=== PATIENT | female | born 1945 | race Caucasian/White ===

== ENCOUNTER → 2016-10-09 | Outpatient (CLI) | payer OTHER | END | disposition home or self-care (01) | LOC: C.LABSPEC 13:00 | PROVIDERS: ATTEND Internal Medicine Hematology & Oncology | DX: D69.6 Thrombocytopenia, unspecified (principal) ==

== ENCOUNTER → 2017-03-12 | Outpatient (CLI) | payer OTHER ==
[2017-03-12 18:04] LABS: HEMATOCRIT 39.6 % (37-47); MEAN CELL VOLUME 94.7 fL (80-100); MEAN CORPUSCULAR HEMOGLOBIN 31.1 pg (25-34); MEAN CORPUSCULAR HGB CONC 32.8 g/dl (32-36); MEAN PLATELET VOLUME 11.3 fL (7.4-10.4); PLATELET COUNT 91 K/uL (130-400); RED BLOOD COUNT 4.18 M/uL (4.2-5.4); WHITE BLOOD COUNT 3.27 K/uL (4.8-10.8)
[2017-03-12 18:05] LABS: PLT ESTIMATE DECREASED
[2017-03-12 18:06] LABS: BLOOD UREA NITROGEN 28 mg/dl (7-18); BUN/CREATININE RATIO 34.2 (10-20); CALCIUM 9.4 mg/dl (8.5-10.1); CARBON DIOXIDE 25 mmol/L (21-32); CHLORIDE 106 mmol/L (98-107); CREATININE 0.83 mg/dl (0.60-1.20); GLUCOSE 290 mg/dl (70-99); PHOSPHORUS 2.5 mg/dl (2.5-4.9); POTASSIUM 4.2 mmol/L (3.5-5.1); SODIUM 140 mmol/L (136-145)
[2017-03-15 14:47] LABS: FK506 TACROLIMUS HIGHLY SENS 2.4 MCG/L (5-20)
== END | disposition home or self-care (01) ==
LOC: C.LABMFLN 12:51
PROVIDERS: ATTEND Internal Medicine Nephrology
DX: Z94.0 Kidney transplant status (principal)

== ENCOUNTER → 2017-03-13 | Outpatient (CLI) | payer OTHER ==
[2017-03-13 17:48] LABS: URINE APPEARANCE CLEAR (CLEAR); URINE BILIRUBIN NEG (NEG); URINE COLOR YELLOW; URINE NITRITE NEG (NEG); URINE SPECIFIC GRAVITY 1.022 (1.000-1.030); UROBILINOGEN NEG (NEG)
[2017-03-13 17:53] LABS: MANUAL MICROSCOPIC REQUIRED? NO; REVIEW REQ? NO
[2017-03-13 18:21] LABS: URINE TOTAL PROTEIN < 5.0 mg/dl (0-11.9)
== END | disposition home or self-care (01) ==
LOC: C.LABMFLN 13:07
PROVIDERS: ATTEND Internal Medicine Nephrology
DX: Z94.0 Kidney transplant status (principal)

== ENCOUNTER → 2017-03-19 | Outpatient (CLI) | payer OTHER ==
[2017-03-21 07:40] LABS: FK506 TACROLIMUS HIGHLY SENS 3.1 MCG/L (5-20)
== END | disposition home or self-care (01) ==
LOC: C.LABMFLN 08:42
PROVIDERS: ATTEND Internal Medicine Nephrology
DX: Z94.0 Kidney transplant status (principal)